=== PATIENT | female | born 1980 | race Caucasian/White ===

== ENCOUNTER 2025-09-23 06:26 | Day surgery (SDC) | payer BC ==
[2025-09-23] MEDS ORDERED: fentaNYL 50 MCG/ML SDV ONE (06:57)
[2025-09-23] MEDS ORDERED: Midazolam 1 MG/ML 2 ML SDV ONE (06:57)
[2025-09-23] MEDS: Lactated Ringers 1,000 ML IV SCH (06:57)
[2025-09-23] MEDS ORDERED: Propofol 200 MG/20 ML SDV ONE ×2 (06:57→07:50)
[2025-09-23 09:15] VITALS: BP 148/82; PULSE 65
== END 2025-09-23 09:15 | disposition home or self-care (01) ==
LOC: JP.SDS 06:26
PROVIDERS: ATTEND Surgery
DX: Z12.11 Encounter for screening for malignant neoplasm of colon (principal); D12.4 Benign neoplasm of descending colon; Z88.8 Allergy status to other drugs, medicaments and biological substances; Z91.09 Other allergy status, other than to drugs and biological substances; Z79.899 Other long term (current) drug therapy
CPT/HCPCS: 00811; 45380; J2250; J2704; J3010; J7120; 88305